=== PATIENT | male | born 1965 | race Caucasian/White ===

== ENCOUNTER 2018-05-21 11:58 | Inpatient (IN) | payer MEDICAID, OTHER ==
[~2018-05-21] VITALS: Ht 182.9 cm; Wt 80.7 kg
[2018-05-21] MEDS ORDERED: vistaril (12:36)
[2018-05-21] MEDS ORDERED: prozac (12:36)
[2018-05-21 12:44] LABS: BASOPHILS # (AUTO) 0.02 x10^3/uL (0-0.1); BASOPHILS % (AUTO) 0 % (0-1); EOSINOPHILS # (AUTO) 0.08 x10^3/uL (0-0.4); EOSINOPHILS % (AUTO) 1 % (1-7); LYMPHOCYTES # (AUTO) 1.15 x10^3/uL (1-3.4); LYMPHOCYTES % (AUTO) 14 % (22-44); MD NO; MEAN CORPUSCULAR HEMOGLOBIN 31.4 pg (27.5-34.5); MEAN CORPUSCULAR VOLUME 92.3 fL (81-97); MEAN PLATELET VOLUME 6.9 fL (7.4-10.4); MONOCYTES # (AUTO) 0.59 x10^3/uL (0.2-0.8); MONOCYTES % (AUTO) 7 % (2-9); NEUTROPHILS % (AUTO) 78 % (42-75); PLATELET COUNT 368 x10^3/uL (130-400); RED BLOOD COUNT 4.71 x10^6/uL (4.38-5.82); RED CELL DISTRIBUTION WIDTH 12.3 % (9.4-14.8)
[2018-05-21 12:56] LABS: ALANINE AMINOTRANSFERASE 62 U/L (12-78); ANION GAP 11 mmol/L (5-15); CALCIUM 8.7 mg/dL (8.5-10.1); CHLORIDE 105 mmol/L (98-107)
[2018-05-21 12:59] LABS: ACETAMINOPHEN < 2 mcg/mL (10-30); ALKALINE PHOSPHATASE 62 U/L (45-117); BILIRUBIN,TOTAL 0.3 mg/dL (0.2-1.0); TOTAL PROTEIN 6.9 g/dL (6.4-8.2)
[2018-05-21 13:01] LABS: SALICYLATE LEVEL 40.3 mg/dL (2.8-20.0)
[2018-05-21] MEDS ORDERED: SODIUM BICARBONATE 8.4% 150 MEQ, POTASSIUM CHLORIDE 40 MEQ in DEXTROSE 5% 1,000 ML IV ONE (13:16)
[2018-05-21] MEDS ORDERED: SODIUM CHLORIDE FLUSH 10ML SYR IVF ONE (13:30)
[2018-05-21] MEDS ORDERED: ONDANSETRON 2MG/ML, 2ML IVPush ONE (13:30)
[2018-05-21] MEDS ORDERED: SODIUM BICARBONATE 1 MEQ/ML, 50ML VIAL IVPush ONE (13:30)
[2018-05-21] MEDS ORDERED: CHARCOAL/SORBITOL 50 GM/240 ML PO ONE (13:30)
[2018-05-21] MEDS ORDERED: SODIUM BICARB 8.4%, 50ML SYRINGE ONE (13:59)
[2018-05-21] MEDS ORDERED: CHARCOAL/SORBITOL 50 GM/240 ML ONE (14:00)
[2018-05-21] MEDS ORDERED: ONDANSETRON 2MG/ML, 2ML ONE (14:00)
[2018-05-21] MEDS ORDERED: SODIUM CHLORIDE FLUSH 10ML SYR IVF PRN (15:00)
[2018-05-21] MEDS ORDERED: PLEASE ENTER ALLERGIES MC SCH (15:00)
[2018-05-21] MEDS ORDERED: SODIUM BICARBONATE 8.4% 150 MEQ in DEXTROSE 5% 1,000 ML IV SCH (18:00)
[2018-05-21] MEDS ORDERED: ACETAMINOPHEN 325 MG TABLET PO PRN (18:00)
[2018-05-21 18:07] LABS: ANION GAP 9 mmol/L (5-15); CALCIUM 7.9 mg/dL (8.5-10.1); CHLORIDE 110 mmol/L (98-107); CREATININE 1.16 mg/dL (0.7-1.3)
[2018-05-21 18:25] LABS: MICROSCOPIC INDICATED
[2018-05-21 18:27] LABS: CHLORIDE,URINE RANDOM 34 mmol/L; POTASSIUM,URINE RANDOM 36 mmol/L; SODIUM,URINE RANDOM 64 mmol/L
[2018-05-21 18:37] LABS: AMPHETAMINE SCREEN, URINE Positive (Negative); BARBITURATE SCREEN, URINE Negative (Negative); BENZODIAZEPINE SCREEN, URINE Negative (Negative); CANNABINOID SCREEN, URINE Negative (Negative); COCAINE SCREEN, URINE Negative (Negative); METHADONE SCREEN, URINE Negative (Negative); OPIATE SCREEN, URINE Negative (Negative)
[2018-05-21] MEDS ORDERED: DEXTROSE 4 GM TAB.CHEW PO PRN (19:00)
[2018-05-21] MEDS ORDERED: POTASSIUM CHLORIDE 20 MEQ TAB.ER.PRT PO ONE ×4 (19:00→22:00)
[2018-05-21] MEDS ORDERED: NOREPINEPHRINE 4 MG in SODIUM CHLORIDE 0.9% 246 ML IV PRN (19:00)
[2018-05-21] MEDS ORDERED: DEXTROSE 50%, 50ML SYRINGE IVPush PRN (19:00)
[2018-05-21] MEDS ORDERED: ONDANSETRON 2MG/ML, 2ML IVPush PRN (19:00)
[2018-05-21] MEDS: SODIUM CHLORIDE FLUSH 10ML SYR IVF SCH (19:08)
[2018-05-21 20:44] LABS: ANION GAP 5 mmol/L (5-15); CALCIUM 7.8 mg/dL (8.5-10.1); CHLORIDE 104 mmol/L (98-107); CREATININE 1.14 mg/dL (0.7-1.3); SALICYLATE LEVEL 27.4 mg/dL (2.8-20.0)
[2018-05-22 00:38] LABS: ANION GAP 4 mmol/L (5-15); CALCIUM 7.8 mg/dL (8.5-10.1); CHLORIDE 106 mmol/L (98-107); CREATININE 1.06 mg/dL (0.7-1.3)
[2018-05-22 04:08] VITALS: BP 98/61
[2018-05-22 04:38] LABS: ALBUMIN 3.1 g/dL (3.4-5.0); ANION GAP 5 mmol/L (5-15); CALCIUM 7.8 mg/dL (8.5-10.1); CHLORIDE 104 mmol/L (98-107)
[2018-05-22 04:39] LABS: BASOPHILS # (AUTO) 0.04 x10^3/uL (0-0.1); BASOPHILS % (AUTO) 1 % (0-1); EOSINOPHILS # (AUTO) 0.07 x10^3/uL (0-0.4); EOSINOPHILS % (AUTO) 1 % (1-7); LYMPHOCYTES # (AUTO) 1.22 x10^3/uL (1-3.4); LYMPHOCYTES % (AUTO) 21 % (22-44); MD NO; MEAN CORPUSCULAR HEMOGLOBIN 31.7 pg (27.5-34.5); MEAN CORPUSCULAR VOLUME 93.3 fL (81-97); MEAN PLATELET VOLUME 7.2 fL (7.4-10.4); MONOCYTES # (AUTO) 0.62 x10^3/uL (0.2-0.8); MONOCYTES % (AUTO) 11 % (2-9); NEUTROPHILS # (AUTO) 3.74 x10^3/uL (1.8-6.8); NEUTROPHILS % (AUTO) 66 % (42-75); PLATELET COUNT 275 x10^3/uL (130-400); RED BLOOD COUNT 3.96 x10^6/uL (4.38-5.82); RED CELL DISTRIBUTION WIDTH 12.8 % (9.4-14.8)
[2018-05-22 04:42] LABS: ALANINE AMINOTRANSFERASE 44 U/L (12-78); ALKALINE PHOSPHATASE 46 U/L (45-117); BILIRUBIN,TOTAL 0.3 mg/dL (0.2-1.0); CREATININE 0.99 mg/dL (0.7-1.3); SALICYLATE LEVEL 14.1 mg/dL (2.8-20.0); TOTAL PROTEIN 5.3 g/dL (6.4-8.2)
[2018-05-22] MEDS ORDERED: PANTOPRAZOLE 40 MG IV IVPush SCH (07:30)
[2018-05-22] MEDS ORDERED: POTASSIUM PHOSPHATE 44 MEQ in SODIUM CHLORIDE 0.9% 500 ML IV ONE (07:30)
[2018-05-22 07:47] LABS: MICROSCOPIC NOT IND
[2018-05-22] MEDS: SODIUM CHLORIDE FLUSH 10ML SYR IVF SCH ×2 (09:40→21:08)
[2018-05-22] MEDS: AMPICILLIN/SULBACTAM 3 GM in SODIUM CHLORIDE 0.9% 100 ML IV SCH ×3 (09:46→21:07)
[2018-05-22] MEDS: FLUOXETINE HCL 20 MG CAPSULE PO SCH (11:49)
[2018-05-22] MEDS: HYDROXYZINE PAMOATE 50MG CAP PO SCH ×2 (16:18→21:08)
[2018-05-22 19:32] VITALS: BP 92/50
[2018-05-22] MEDS ORDERED: SODIUM BICARBONATE 8.4% 150 MEQ, POTASSIUM CHLORIDE 40 MEQ in DEXTROSE 5% 1,000 ML IV SCH (20:54)
[2018-05-23] MEDS: AMPICILLIN/SULBACTAM 3 GM in SODIUM CHLORIDE 0.9% 100 ML IV SCH ×4 (03:21→21:00)
[2018-05-23 03:23] VITALS: BP 111/60
[2018-05-23 06:53] VITALS: BP 109/64
[2018-05-23] MEDS: FLUOXETINE HCL 20 MG CAPSULE PO SCH (08:35)
[2018-05-23] MEDS: SODIUM CHLORIDE FLUSH 10ML SYR IVF SCH ×2 (08:35→21:00)
[2018-05-23] MEDS: HYDROXYZINE PAMOATE 50MG CAP PO SCH ×3 (08:35→21:00)
[2018-05-24] MEDS: AMPICILLIN/SULBACTAM 3 GM in SODIUM CHLORIDE 0.9% 100 ML IV SCH ×2 (03:00→07:32)
[2018-05-24 04:12] VITALS: BP 97/61
[2018-05-24 07:28] VITALS: BP 113/67
[2018-05-24] MEDS: HYDROXYZINE PAMOATE 50MG CAP PO SCH ×3 (07:31→21:17)
[2018-05-24] MEDS: FLUOXETINE HCL 20 MG CAPSULE PO SCH (07:31)
[2018-05-24] MEDS: SODIUM CHLORIDE FLUSH 10ML SYR IVF SCH ×2 (07:32→21:00)
[2018-05-24] MEDS ORDERED: LORazepam 0.5MG TABLET PO ONE (12:00)
[2018-05-24 12:36] VITALS: BP 119/61
[2018-05-24] MEDS: NEUTRA PHOS K 250 MG TABLET PO SCH ×2 (16:21→21:17)
[2018-05-24 20:00] VITALS: BP 112/64
[2018-05-24] MEDS: AMOXICILLIN/CLAV 875-125MG TABLET PO SCH (21:17)
[2018-05-25 01:29] VITALS: BP 110/67
[2018-05-25 05:54] LABS: CHLORIDE 111 mmol/L (98-107)
[2018-05-25 05:59] LABS: BASOPHILS # (AUTO) 0.07 x10^3/uL (0-0.1); BASOPHILS % (AUTO) 1 % (0-1); EOSINOPHILS % (AUTO) 6 % (1-7); LYMPHOCYTES # (AUTO) 1.72 x10^3/uL (1-3.4); LYMPHOCYTES % (AUTO) 36 % (22-44); MD NO; MEAN CORPUSCULAR HEMOGLOBIN 31.4 pg (27.5-34.5); MEAN CORPUSCULAR HGB CONC 33.8 g/dL (33.2-36.2); MEAN CORPUSCULAR VOLUME 92.8 fL (81-97); MEAN PLATELET VOLUME 7.1 fL (7.4-10.4); MONOCYTES # (AUTO) 0.36 x10^3/uL (0.2-0.8); MONOCYTES % (AUTO) 8 % (2-9); NEUTROPHILS # (AUTO) 2.36 x10^3/uL (1.8-6.8); NEUTROPHILS % (AUTO) 49 % (42-75); PLATELET COUNT 313 x10^3/uL (130-400); RED BLOOD COUNT 4.12 x10^6/uL (4.38-5.82); RED CELL DISTRIBUTION WIDTH 12.6 % (9.4-14.8)
[2018-05-25 06:02] LABS: ALANINE AMINOTRANSFERASE 42 U/L (12-78); ALBUMIN 3.2 g/dL (3.4-5.0); ALKALINE PHOSPHATASE 45 U/L (45-117); ANION GAP 6 mmol/L (5-15); BILIRUBIN,TOTAL 0.4 mg/dL (0.2-1.0); CALCIUM 8.3 mg/dL (8.5-10.1); CREATININE 0.95 mg/dL (0.7-1.3); TOTAL PROTEIN 5.7 g/dL (6.4-8.2)
[2018-05-25 07:05] VITALS: BP 117/62
[2018-05-25] MEDS: SODIUM CHLORIDE FLUSH 10ML SYR IVF SCH ×2 (08:43→19:58)
[2018-05-25] MEDS: AMOXICILLIN/CLAV 875-125MG TABLET PO SCH ×2 (08:43→19:57)
[2018-05-25] MEDS: NEUTRA PHOS K 250 MG TABLET PO SCH ×3 (08:43→19:57)
[2018-05-25] MEDS: HYDROXYZINE PAMOATE 50MG CAP PO SCH ×3 (08:44→19:57)
[2018-05-25] MEDS: FLUOXETINE HCL 20 MG CAPSULE PO SCH (08:44)
[2018-05-25 14:30] VITALS: BP 106/65
[2018-05-25 19:08] VITALS: BP 110/64
[2018-05-26 01:19] VITALS: BP 107/62
[2018-05-26 07:00] VITALS: BP 106/76
[2018-05-26 08:10] LABS: BASOPHILS # (AUTO) 0.06 x10^3/uL (0-0.1); BASOPHILS % (AUTO) 1 % (0-1); EOSINOPHILS # (AUTO) 0.25 x10^3/uL (0-0.4); EOSINOPHILS % (AUTO) 5 % (1-7); LYMPHOCYTES # (AUTO) 1.61 x10^3/uL (1-3.4); LYMPHOCYTES % (AUTO) 33 % (22-44); MD NO; MEAN CORPUSCULAR HEMOGLOBIN 31.2 pg (27.5-34.5); MEAN CORPUSCULAR HGB CONC 33.8 g/dL (33.2-36.2); MEAN CORPUSCULAR VOLUME 92.5 fL (81-97); MEAN PLATELET VOLUME 6.8 fL (7.4-10.4); MONOCYTES # (AUTO) 0.38 x10^3/uL (0.2-0.8); MONOCYTES % (AUTO) 8 % (2-9); NEUTROPHILS # (AUTO) 2.61 x10^3/uL (1.8-6.8); NEUTROPHILS % (AUTO) 53 % (42-75); PLATELET COUNT 337 x10^3/uL (130-400); RED BLOOD COUNT 4.15 x10^6/uL (4.38-5.82); RED CELL DISTRIBUTION WIDTH 12.3 % (9.4-14.8)
[2018-05-26 08:19] LABS: ALBUMIN 3.3 g/dL (3.4-5.0); CALCIUM 8.8 mg/dL (8.5-10.1); CHLORIDE 110 mmol/L (98-107); CREATININE 1.08 mg/dL (0.7-1.3)
[2018-05-26 08:29] LABS: ACETAMINOPHEN < 2 mcg/mL (10-30); ANION GAP 6 mmol/L (5-15); SALICYLATE LEVEL < 1.7 mg/dL (2.8-20.0)
[2018-05-26] MEDS: NEUTRA PHOS K 250 MG TABLET PO SCH (08:30)
[2018-05-26] MEDS: HYDROXYZINE PAMOATE 50MG CAP PO SCH ×2 (08:30→16:50)
[2018-05-26] MEDS: FLUOXETINE HCL 20 MG CAPSULE PO SCH (08:30)
[2018-05-26] MEDS: AMOXICILLIN/CLAV 875-125MG TABLET PO SCH (08:30)
[2018-05-26] MEDS ORDERED: AMOXICILLIN/CLAV 875-125MG TABLET PO SCH (09:00)
[2018-05-26] MEDS: SODIUM CHLORIDE FLUSH 10ML SYR IVF SCH (09:00)
[2018-05-26 12:14] VITALS: BP 116/68
[2018-05-26 18:52] VITALS: BP 100/60
== END 2018-05-26 20:40 | DRG 918 ==
LOC: ED 13:24 → EDIP 14:44 → CCU 16:14 → 5SO 05-22 19:15 → 3NE 05-23 20:21
PROVIDERS: ADMIT Hospitalist; ATTEND Hospitalist
PROC: 0T9B70Z Drainage of Bladder with Drainage Device, Via Natural or Artificial Opening (ICD-10-PCS; principal; 2018-05-21)
DX: T39.012A Poisoning by aspirin, intentional self-harm, initial encounter (principal); E87.0 Hyperosmolality and hypernatremia; E87.6 Hypokalemia; F15.90 Other stimulant use, unspecified, uncomplicated; F32.9 Major depressive disorder, single episode, unspecified; F41.9 Anxiety disorder, unspecified; F17.210 Nicotine dependence, cigarettes, uncomplicated; S61.409A Unspecified open wound of unspecified hand, initial encounter; Y93.89 Activity, other specified; Z91.5 Personal history of self-harm; Z71.51 Drug abuse counseling and surveillance of drug abuser; Y92.89 Other specified places as the place of occurrence of the external cause; Z59.0 Homelessness; W55.03XA Scratched by cat, initial encounter
CPT/HCPCS: 36415; 36600; 80048; 80053; 80307; 80329; 81001; 81003; 82040; 82436; 82800; 82803; 83735; 84100; 84133; 84300; 85025; 87081; 93005; 96374; 96375; J0295; J2405; J3480; J7070; G0480; J7040

== ENCOUNTER 2018-06-08 23:26 | Inpatient (IN) | payer MEDICAID, OTHER ==
[~2018-06-08] VITALS: Ht 182.9 cm; Wt 74.8 kg
[~2018-06-08 23:26] MED LIST: prozac; vistaril
[2018-06-08 23:49] LABS: BASOPHILS # (AUTO) 0.02 x10^3/uL (0-0.1); BASOPHILS % (AUTO) 0 % (0-1); EOSINOPHILS % (AUTO) 0 % (1-7); LYMPHOCYTES # (AUTO) 0.79 x10^3/uL (1-3.4); LYMPHOCYTES % (AUTO) 8 % (22-44); MD NO; MEAN CORPUSCULAR HEMOGLOBIN 32.5 pg (27.5-34.5); MEAN CORPUSCULAR HGB CONC 34.9 g/dL (33.2-36.2); MEAN CORPUSCULAR VOLUME 93.2 fL (81-97); MONOCYTES # (AUTO) 0.42 x10^3/uL (0.2-0.8); MONOCYTES % (AUTO) 4 % (2-9); NEUTROPHILS # (AUTO) 8.33 x10^3/uL (1.8-6.8); NEUTROPHILS % (AUTO) 87 % (42-75); PLATELET COUNT 331 x10^3/uL (130-400); RED BLOOD COUNT 4.23 x10^6/uL (4.38-5.82); RED CELL DISTRIBUTION WIDTH 13.6 % (9.4-14.8)
[2018-06-08] MEDS ORDERED: HYDR50CA PO (23:57)
[2018-06-08] MEDS ORDERED: TRAZ-136 PO (23:57)
[2018-06-08] MEDS ORDERED: FLUO40CA9 PO (23:57)
[2018-06-09 00:01] LABS: ALANINE AMINOTRANSFERASE 23 U/L (12-78); ALBUMIN 3.8 g/dL (3.4-5.0); ANION GAP 14 mmol/L (5-15); CALCIUM 7.6 mg/dL (8.5-10.1); CHLORIDE 109 mmol/L (98-107); CREATININE 1.42 mg/dL (0.7-1.3)
[2018-06-09 00:03] LABS: ALKALINE PHOSPHATASE 52 U/L (45-117); BILIRUBIN,TOTAL 0.5 mg/dL (0.2-1.0); SALICYLATE LEVEL 89.4 mg/dL (2.8-20.0); TOTAL PROTEIN 6.6 g/dL (6.4-8.2)
[2018-06-09 00:04] LABS: ACETAMINOPHEN < 2 mcg/mL (10-30)
[2018-06-09] MEDS ORDERED: SODIUM BICARBONATE 8.4% 150 MEQ, POTASSIUM CHLORIDE 20 MEQ in DEXTROSE 5% 1,000 ML IV SCH (00:10)
[2018-06-09] MEDS ORDERED: SODIUM BICARB 8.4%, 50ML SYRINGE IVPush STA (00:17)
[2018-06-09] MEDS ORDERED: SODIUM BICARB 8.4%, 50ML SYRINGE ONE (00:18)
[2018-06-09 00:39] LABS: AMPHETAMINE SCREEN, URINE Negative (Negative); BARBITURATE SCREEN, URINE Negative (Negative); BENZODIAZEPINE SCREEN, URINE Negative (Negative); CANNABINOID SCREEN, URINE Positive (Negative); COCAINE SCREEN, URINE Negative (Negative); METHADONE SCREEN, URINE Negative (Negative); OPIATE SCREEN, URINE Negative (Negative)
[2018-06-09 00:41] LABS: MICROSCOPIC NOT IND
[2018-06-09 00:48] LABS: CULTURE INDICATED? NO
[2018-06-09] MEDS ORDERED: hydrALAzine 20 MG/ML, 1ML IVPush PRN (01:00)
[2018-06-09] MEDS ORDERED: POTASSIUM CHLORIDE 20 MEQ TAB.ER.PRT PO ONE ×4 (01:00→17:30)
[2018-06-09] MEDS ORDERED: POTASSIUM CHLORIDE 20 MEQ TAB.ER.PRT ONE (01:16)
[2018-06-09] MEDS ORDERED: SODIUM CHLORIDE 0.9% 1,000ML IVBOLUS ONE ×2 (01:30)
[2018-06-09] MEDS: SODIUM BICARBONATE 8.4% 150 MEQ in DEXTROSE 5% 1,000 ML IV SCH ×6 (01:53→21:00)
[2018-06-09 02:12] VITALS: BP 95/37
[2018-06-09 02:29] VITALS: BP 95/37
[2018-06-09] MEDS: ONDANSETRON 2MG/ML, 2ML IVPush PRN ×2 (02:53→09:30)
[2018-06-09 04:38] LABS: FIO2 RA %
[2018-06-09 04:51] LABS: INTERNATIONAL NORMALIZED RATIO 1.8 (0.93-1.1); PROTHROMBIN TIME 18.5 Seconds (9.6-11.5)
[2018-06-09 05:13] LABS: MICROSCOPIC NOT IND
[2018-06-09 06:24] LABS: BASOPHILS # (AUTO) 0.03 x10^3/uL (0-0.1); BASOPHILS % (AUTO) 0 % (0-1); EOSINOPHILS % (AUTO) 0 % (1-7); LYMPHOCYTES # (AUTO) 0.83 x10^3/uL (1-3.4); LYMPHOCYTES % (AUTO) 11 % (22-44); MD NO; MEAN CORPUSCULAR HEMOGLOBIN 32.8 pg (27.5-34.5); MEAN CORPUSCULAR HGB CONC 35.5 g/dL (33.2-36.2); MEAN CORPUSCULAR VOLUME 92.4 fL (81-97); MEAN PLATELET VOLUME 7.1 fL (7.4-10.4); MONOCYTES # (AUTO) 0.34 x10^3/uL (0.2-0.8); MONOCYTES % (AUTO) 5 % (2-9); NEUTROPHILS # (AUTO) 6.13 x10^3/uL (1.8-6.8); NEUTROPHILS % (AUTO) 84 % (42-75); PLATELET COUNT 285 x10^3/uL (130-400); RED BLOOD COUNT 3.57 x10^6/uL (4.38-5.82); RED CELL DISTRIBUTION WIDTH 13.6 % (9.4-14.8)
[2018-06-09 06:32] LABS: ALANINE AMINOTRANSFERASE 18 U/L (12-78); ANION GAP 9 mmol/L (5-15); CALCIUM 6.7 mg/dL (8.5-10.1); CHLORIDE 110 mmol/L (98-107); CREATININE 1.33 mg/dL (0.7-1.3)
[2018-06-09 06:34] LABS: ALKALINE PHOSPHATASE 44 U/L (45-117); BILIRUBIN,TOTAL 0.4 mg/dL (0.2-1.0); TOTAL PROTEIN 5.3 g/dL (6.4-8.2)
[2018-06-09 08:55] LABS: O2 FLOW ROOM AIR L/min
[2018-06-09 09:05] LABS: ALANINE AMINOTRANSFERASE 18 U/L (12-78); ANION GAP 8 mmol/L (5-15); CALCIUM 6.6 mg/dL (8.5-10.1); CHLORIDE 108 mmol/L (98-107); CREATININE 1.33 mg/dL (0.7-1.3)
[2018-06-09 09:07] LABS: ALKALINE PHOSPHATASE 42 U/L (45-117); BILIRUBIN,TOTAL 0.4 mg/dL (0.2-1.0); SALICYLATE LEVEL 69.8 mg/dL (2.8-20.0); TOTAL PROTEIN 5.4 g/dL (6.4-8.2)
[2018-06-09 09:08] LABS: INTERNATIONAL NORMALIZED RATIO 1.78 (0.93-1.1); PROTHROMBIN TIME 18.3 Seconds (9.6-11.5)
[2018-06-09] MEDS: PANTOPRAZOLE 40 MG IV IVPush SCH ×2 (09:30→20:59)
[2018-06-09] MEDS: FLUOXETINE HCL 20 MG CAPSULE PO SCH (11:40)
[2018-06-09 12:49] LABS: ALANINE AMINOTRANSFERASE 19 U/L (12-78); ANION GAP 7 mmol/L (5-15); CALCIUM 6.6 mg/dL (8.5-10.1); CHLORIDE 107 mmol/L (98-107); CREATININE 1.37 mg/dL (0.7-1.3)
[2018-06-09 12:53] LABS: SALICYLATE LEVEL 61.4 mg/dL (2.8-20.0)
[2018-06-09 12:59] LABS: ALKALINE PHOSPHATASE 42 U/L (45-117); BILIRUBIN,TOTAL 0.4 mg/dL (0.2-1.0); THYROID STIMULATING HORMONE 0.374 mIU/L (0.358-3.740); TOTAL PROTEIN 5.4 g/dL (6.4-8.2)
[2018-06-09] MEDS: NICOTINE 14MG/24 HR PATCH.TD24 TD SCH (13:45)
[2018-06-09] MEDS ORDERED: POTASSIUM CHLORIDE 40 MEQ in SODIUM CHLORIDE 0.9% 500 ML IV ONE (14:30)
[2018-06-09 16:17] LABS: ALANINE AMINOTRANSFERASE 18 U/L (12-78); ANION GAP 6 mmol/L (5-15); CALCIUM 6.6 mg/dL (8.5-10.1); CHLORIDE 107 mmol/L (98-107); CREATININE 1.26 mg/dL (0.7-1.3)
[2018-06-09 16:20] LABS: ALKALINE PHOSPHATASE 40 U/L (45-117); BILIRUBIN,TOTAL 0.4 mg/dL (0.2-1.0); TOTAL PROTEIN 5.2 g/dL (6.4-8.2)
[2018-06-09 16:31] LABS: SALICYLATE LEVEL 50.6 mg/dL (2.8-20.0)
[2018-06-09 18:28] LABS: MICROSCOPIC NOT IND
[2018-06-09 20:28] LABS: ALBUMIN 2.8 g/dL (3.4-5.0); ANION GAP 7 mmol/L (5-15); CALCIUM 6.6 mg/dL (8.5-10.1); CHLORIDE 106 mmol/L (98-107)
[2018-06-09 20:31] LABS: ALANINE AMINOTRANSFERASE 18 U/L (12-78); ALKALINE PHOSPHATASE 38 U/L (45-117); BILIRUBIN,TOTAL 0.5 mg/dL (0.2-1.0); CREATININE 1.32 mg/dL (0.7-1.3); TOTAL PROTEIN 4.8 g/dL (6.4-8.2)
[2018-06-09 20:38] LABS: SALICYLATE LEVEL 36.9 mg/dL (2.8-20.0)
[2018-06-09] MEDS: POTASSIUM CHLORIDE 20 MEQ TAB.ER.PRT PO SCH (20:59)
[2018-06-09] MEDS ORDERED: QUETIAPINE 25MG TABLET PO SCH (21:00)
[2018-06-10 00:36] LABS: ALBUMIN 2.9 g/dL (3.4-5.0); ANION GAP 4 mmol/L (5-15); CALCIUM 6.9 mg/dL (8.5-10.1); CHLORIDE 107 mmol/L (98-107); SALICYLATE LEVEL 25.5 mg/dL (2.8-20.0)
[2018-06-10 00:40] LABS: MICROSCOPIC NOT IND
[2018-06-10 00:40] LABS: ALANINE AMINOTRANSFERASE 18 U/L (12-78); ALKALINE PHOSPHATASE 38 U/L (45-117); BILIRUBIN,TOTAL 0.3 mg/dL (0.2-1.0); CREATININE 1.13 mg/dL (0.7-1.3); TOTAL PROTEIN 4.9 g/dL (6.4-8.2)
[2018-06-10] MEDS ORDERED: POTASSIUM CHLORIDE 20 MEQ TAB.ER.PRT PO ONE ×2 (02:00→05:30)
[2018-06-10] MEDS: SODIUM BICARBONATE 8.4% 150 MEQ in DEXTROSE 5% 1,000 ML IV SCH (03:12)
[2018-06-10] MEDS ORDERED: SODIUM CHLORIDE 0.9%, 500ML IVBOLUS ONE (03:30)
[2018-06-10 04:30] VITALS: BP 89/45
[2018-06-10 04:33] LABS: BASOPHILS # (AUTO) 0.03 x10^3/uL (0-0.1); BASOPHILS % (AUTO) 1 % (0-1); EOSINOPHILS # (AUTO) 0.03 x10^3/uL (0-0.4); EOSINOPHILS % (AUTO) 1 % (1-7); LYMPHOCYTES # (AUTO) 1.61 x10^3/uL (1-3.4); LYMPHOCYTES % (AUTO) 43 % (22-44); MD NO; MEAN CORPUSCULAR HEMOGLOBIN 32.7 pg (27.5-34.5); MEAN CORPUSCULAR HGB CONC 34.7 g/dL (33.2-36.2); MEAN CORPUSCULAR VOLUME 94.1 fL (81-97); MEAN PLATELET VOLUME 7.1 fL (7.4-10.4); MONOCYTES # (AUTO) 0.38 x10^3/uL (0.2-0.8); MONOCYTES % (AUTO) 10 % (2-9); NEUTROPHILS # (AUTO) 1.73 x10^3/uL (1.8-6.8); NEUTROPHILS % (AUTO) 46 % (42-75); PLATELET COUNT 225 x10^3/uL (130-400); RED BLOOD COUNT 3.06 x10^6/uL (4.38-5.82); RED CELL DISTRIBUTION WIDTH 13.5 % (9.4-14.8)
[2018-06-10 04:37] LABS: ALBUMIN 2.6 g/dL (3.4-5.0); ANION GAP 5 mmol/L (5-15); CHLORIDE 107 mmol/L (98-107)
[2018-06-10 04:49] LABS: ALANINE AMINOTRANSFERASE 17 U/L (12-78); ALKALINE PHOSPHATASE 35 U/L (45-117); BILIRUBIN,TOTAL 0.3 mg/dL (0.2-1.0); CREATININE 1.01 mg/dL (0.7-1.3); SALICYLATE LEVEL 16.8 mg/dL (2.8-20.0); TOTAL PROTEIN 4.5 g/dL (6.4-8.2)
[2018-06-10] MEDS ORDERED: POTASSIUM PHOSPHATE 44 MEQ in SODIUM CHLORIDE 0.9% 500 ML IV ONE (05:30)
[2018-06-10] MEDS: PANTOPRAZOLE 40 MG IV IVPush SCH ×2 (07:52→21:22)
[2018-06-10] MEDS: FLUOXETINE HCL 20 MG CAPSULE PO SCH (07:52)
[2018-06-10] MEDS: POTASSIUM CHLORIDE 20 MEQ TAB.ER.PRT PO SCH ×2 (07:52→21:22)
[2018-06-10] MEDS: POTASSIUM PHOSPHATE 44 MEQ in SODIUM CHLORIDE 0.9% 500 ML IV ONE ×2 (08:30→14:22)
[2018-06-10 10:14] VITALS: BP 94/60
[2018-06-10 12:49] VITALS: BP 101/58
[2018-06-10] MEDS: NICOTINE 14MG/24 HR PATCH.TD24 TD SCH (14:22)
[2018-06-10 19:20] VITALS: BP 116/74
[2018-06-10] MEDS: QUETIAPINE 100MG TABLET PO SCH (21:22)
[2018-06-11 03:57] VITALS: BP 104/68
[2018-06-11 04:10] LABS: BASOPHILS # (AUTO) 0.03 x10^3/uL (0-0.1); BASOPHILS % (AUTO) 1 % (0-1); EOSINOPHILS # (AUTO) 0.05 x10^3/uL (0-0.4); EOSINOPHILS % (AUTO) 1 % (1-7); LYMPHOCYTES # (AUTO) 1.69 x10^3/uL (1-3.4); LYMPHOCYTES % (AUTO) 48 % (22-44); MD NO; MEAN CORPUSCULAR HGB CONC 34.6 g/dL (33.2-36.2); MEAN CORPUSCULAR VOLUME 95.2 fL (81-97); MEAN PLATELET VOLUME 6.9 fL (7.4-10.4); MONOCYTES # (AUTO) 0.26 x10^3/uL (0.2-0.8); MONOCYTES % (AUTO) 8 % (2-9); NEUTROPHILS # (AUTO) 1.47 x10^3/uL (1.8-6.8); NEUTROPHILS % (AUTO) 42 % (42-75); PLATELET COUNT 235 x10^3/uL (130-400); RED BLOOD COUNT 3.04 x10^6/uL (4.38-5.82); RED CELL DISTRIBUTION WIDTH 13.8 % (9.4-14.8)
[2018-06-11 04:23] LABS: ALANINE AMINOTRANSFERASE 21 U/L (12-78); ALBUMIN 2.6 g/dL (3.4-5.0); ANION GAP 4 mmol/L (5-15); CALCIUM 7.5 mg/dL (8.5-10.1); CHLORIDE 114 mmol/L (98-107)
[2018-06-11 04:24] LABS: INTERNATIONAL NORMALIZED RATIO 1.06 (0.93-1.1)
[2018-06-11 04:26] LABS: ALKALINE PHOSPHATASE 36 U/L (45-117); BILIRUBIN,TOTAL 0.3 mg/dL (0.2-1.0); CREATININE 0.74 mg/dL (0.7-1.3); TOTAL PROTEIN 4.7 g/dL (6.4-8.2)
[2018-06-11 07:21] VITALS: BP 112/51
[2018-06-11] MEDS: FLUOXETINE HCL 20 MG CAPSULE PO SCH (08:39)
[2018-06-11] MEDS: PANTOPRAZOLE 40 MG IV IVPush SCH ×2 (08:40→20:30)
[2018-06-11] MEDS ORDERED: POTASSIUM PHOS 4.4 MEQ/ML IV ONE (10:00)
[2018-06-11] MEDS ORDERED: POTASSIUM PHOSPHATE 44 MEQ in SODIUM CHLORIDE 0.9% 500 ML IV ONE (10:30)
[2018-06-11 13:51] VITALS: BP 128/74
[2018-06-11] MEDS: NICOTINE 14MG/24 HR PATCH.TD24 TD SCH (13:59)
[2018-06-11 19:26] VITALS: BP 110/70
[2018-06-11] MEDS: QUETIAPINE 100MG TABLET PO SCH (20:32)
[2018-06-12 01:53] VITALS: BP 113/73
[2018-06-12 07:45] VITALS: BP 122/71
[2018-06-12] MEDS: PANTOPRAZOLE 40 MG IV IVPush SCH (08:33)
[2018-06-12] MEDS: FLUOXETINE HCL 20 MG CAPSULE PO SCH (08:34)
[2018-06-12] MEDS: NICOTINE 14MG/24 HR PATCH.TD24 TD SCH (13:37)
[2018-06-12 13:56] VITALS: BP 116/74
[2018-06-12 15:43] VITALS: BP 116/68
[2018-06-12 19:47] VITALS: BP 127/79
[2018-06-12] MEDS: PANTOPROZOLE 40MG TABLET PO SCH (21:21)
[2018-06-12] MEDS: QUETIAPINE 100MG TABLET PO SCH (21:24)
[2018-06-13 06:13] LABS: ANION GAP 5 mmol/L (5-15); CHLORIDE 111 mmol/L (98-107); CREATININE 0.85 mg/dL (0.7-1.3)
[2018-06-13 07:51] VITALS: BP 122/68
[2018-06-13] MEDS: FLUOXETINE HCL 20 MG CAPSULE PO SCH (08:02)
[2018-06-13] MEDS: PANTOPROZOLE 40MG TABLET PO SCH ×2 (08:02→20:48)
[2018-06-13] MEDS: ACETAMINOPHEN 325 MG TABLET PO PRN (11:52)
[2018-06-13] MEDS: NICOTINE 14MG/24 HR PATCH.TD24 TD SCH (11:52)
[2018-06-13 19:29] VITALS: BP 116/70
[2018-06-13] MEDS: QUETIAPINE 100MG TABLET PO SCH (20:48)
[2018-06-14 07:45] VITALS: BP 115/71
[2018-06-14] MEDS: FLUOXETINE HCL 20 MG CAPSULE PO SCH (09:08)
[2018-06-14] MEDS: PANTOPROZOLE 40MG TABLET PO SCH ×2 (09:08→21:09)
[2018-06-14] MEDS: NICOTINE 14MG/24 HR PATCH.TD24 TD SCH (15:18)
[2018-06-14 19:14] VITALS: BP 117/61
[2018-06-14] MEDS: QUETIAPINE 100MG TABLET PO SCH (21:09)
[2018-06-15 08:37] VITALS: BP 105/69
[2018-06-15] MEDS: PANTOPROZOLE 40MG TABLET PO SCH ×2 (08:40→19:53)
[2018-06-15] MEDS: FLUOXETINE HCL 20 MG CAPSULE PO SCH (08:40)
[2018-06-15] MEDS: NICOTINE 14MG/24 HR PATCH.TD24 TD SCH (13:47)
[2018-06-15] MEDS: QUETIAPINE 100MG TABLET PO SCH (19:53)
[2018-06-15 20:00] VITALS: BP 111/70
[2018-06-16] MEDS: ACETAMINOPHEN 325 MG TABLET PO PRN (04:34)
[2018-06-16 07:14] VITALS: BP 116/73
[2018-06-16] MEDS ORDERED: FLUOXETINE HCL 20 MG CAPSULE PO ONE (08:30)
[2018-06-16] MEDS: PANTOPROZOLE 40MG TABLET PO SCH ×2 (08:57→20:30)
[2018-06-16] MEDS: FLUOXETINE HCL 20 MG CAPSULE PO SCH (08:58)
[2018-06-16] MEDS: NICOTINE 14MG/24 HR PATCH.TD24 TD SCH (14:31)
[2018-06-16 19:41] VITALS: BP 104/54
[2018-06-16] MEDS: QUETIAPINE 100MG TABLET PO SCH (20:17)
[2018-06-17 08:15] VITALS: BP 101/63
[2018-06-17] MEDS: FLUOXETINE HCL 20 MG CAPSULE PO SCH (08:22)
[2018-06-17] MEDS: PANTOPROZOLE 40MG TABLET PO SCH ×2 (08:22→21:37)
[2018-06-17] MEDS: NICOTINE 14MG/24 HR PATCH.TD24 TD SCH (15:48)
[2018-06-17] MEDS ORDERED: LORazepam 1MG TABLET PO PRN (16:00)
[2018-06-17 19:46] VITALS: BP 116/68
[2018-06-17] MEDS: QUETIAPINE 100MG TABLET PO SCH (21:37)
[2018-06-18 07:21] VITALS: BP 108/70
[2018-06-18] MEDS: FLUOXETINE HCL 20 MG CAPSULE PO SCH (08:29)
[2018-06-18] MEDS: PANTOPROZOLE 40MG TABLET PO SCH (08:29)
[2018-06-18] MEDS: NICOTINE 14MG/24 HR PATCH.TD24 TD SCH (16:00)
== END 2018-06-18 16:17 | DRG 917 ==
LOC: ED 23:40 → EDIP 06-09 00:32 → SUATTDRO 06-09 00:44 → CCU 06-09 01:44 → 3NW 06-10 09:51 → 3NE 06-11 07:30 → 2N 06-12 15:40
PROVIDERS: ADMIT Hospitalist; ATTEND Family Medicine
DX: T39.012A Poisoning by aspirin, intentional self-harm, initial encounter (principal); N17.0 Acute kidney failure with tubular necrosis; D68.9 Coagulation defect, unspecified; E87.2 Acidosis; F33.2 Major depressive disorder, recurrent severe without psychotic features; Y92.89 Other specified places as the place of occurrence of the external cause; D64.9 Anemia, unspecified; E87.6 Hypokalemia; F12.10 Cannabis abuse, uncomplicated; F15.10 Other stimulant abuse, uncomplicated; F41.9 Anxiety disorder, unspecified; S61.511A Laceration without foreign body of right wrist, initial encounter; S61.512A Laceration without foreign body of left wrist, initial encounter; X78.9XXA Intentional self-harm by unspecified sharp object, initial encounter; Z59.0 Homelessness; Z72.0 Tobacco use; Z71.6 Tobacco abuse counseling; Z79.899 Other long term (current) drug therapy; Z79.82 Long term (current) use of aspirin; Z81.8 Family history of other mental and behavioral disorders; Z91.5 Personal history of self-harm
CPT/HCPCS: 36415; 36600; 80048; 80053; 80307; 80329; 81003; 82803; 83735; 84100; 84443; 85025; 85610; 85730; 87081; 93005; 96361; 96365; 96376; 99291; J2405; J3480; J7070; C9113; G0480; J7030; J7040